=== PATIENT | female | born 1970 | race Caucasian/White ===

== ENCOUNTER 2022-05-28 16:35 | Emergency (ER) | payer BC ==
[2022-05-28] MEDS ORDERED: Ketorolac Tromethamine 30 MG/ML VIAL ONE (17:29)
[2022-05-28] MEDS ORDERED: Dexamethasone 10 MG/ML VIAL ONE (17:29)
== END 2022-05-28 17:58 | disposition home or self-care (01) ==
LOC: CSHERS 16:35
DX: M54.50 Low back pain, unspecified (principal); R05.9 Cough, unspecified; F17.210 Nicotine dependence, cigarettes, uncomplicated
CPT/HCPCS: 96372; 99283; J1100; J1885